=== PATIENT | female | born 1980 | race Caucasian/White ===

== ENCOUNTER 2018-02-10 08:58 | Day surgery (SDC) | payer OTHER, SELFPAY ==
[2018-02-07 14:24] VITALS: BMI 28.2
[2018-02-10] VITALS (8 sets, daily range): BP systolic 111–146; BP diastolic 72–104; PULSE 80–115; RESP 10–16; TEMP 36.2–36.6; O2SAT 95–100; BMI 28.2
[2018-02-10] MEDS: LACTATED RINGERS 1,000 ML 100 ML IV ×2 (09:38→11:37)
--- NOTE | 2018-02-10 09:52 | PM.PREOP ---
Pre-operative Note Interval Note Pre-op Check: History & Physical exam performed today
--- NOTE | 2018-02-10 10:10 | PM.HP.1 ---
History of Present Illness Chief complaint: 97566 LAP REMOVAL OF COMPLEX LEFT OVARIAN MASS Patient History Medical History Sinus drainage (Acute) Surgical History History of third molar tooth extraction Status post laparoscopic supracervical hysterectomy (11/15/14) Family & Social History Social History: household members significant other Tobacco & Substance use: Smoking Status Never smoker alcohol intake current alcohol intake frequency 0-2 drinks per day Substance Use Type does not use Meds Home Medications Medication Instructions Recorded Confirmed Type tsmbvkq-ilh-fzx N1-P3-wlbtxcki 250 1 tab PO BID 01/08/18 02/10/18 History mg-40 mg-5 mg-125 unit tablet cholecalciferol (vitamin D3) 4,000 4,000 unit PO DAILY 01/08/18 02/07/18 History unit capsule geriatric multivit with iron and 1 tab PO DAILY 01/08/18 02/07/18 History minerals tablet lactobacillus combination no.8 3 3,000 mmu cells PO DAILY 01/08/18 02/07/18 History billion cell capsule levothyroxine 100 mcg capsule 100 mcg PO DAILY #30 cap 01/20/18 02/10/18 Rx tramadol 50 mg tablet 100 mg PO Q6H PRN #20 tab 01/22/18 02/10/18 Rx Allergies Allergy/AdvReac Type Severity Reaction Status Date / Time shellfish derived Allergy Severe Anaphylaxis Verified 01/08/18 09:28 Exam Vital Signs (past 8 hours): Vital Signs - 8 hr 02/10/18 09:11 Temperature 97.4 F L Pulse Rate 88 Respiratory Rate 16 Blood Pressure 125/91 H Pulse Oximetry 99 Pulse Oximetry 99 Oxygen Delivery Method Room Air Narrative Exam Narrative: HEENT: No thyromegaly, no anterior cervical or supraclavicular lymphadenopathy. Lungs:Clear to auscultation bilaterally, no wheezes. Cardiovascular: Regular rate and rhythm, no murmurs, rubs, or gallops. Abdomen: Well-healed laparoscopy scars. No hepatosplenomegaly. No masses palpable. External genitalia: Normal Vagina: Normal Cervix: Normal Bimanual exam: Left adnexal mass Rectal: No masses. Ultrasound: Complex left ovarian mass Assessment & Plan (1) Ovarian mass: Current visit: Yes Status: Acute Plan: Assessment/Plan Narrative: Assessment: 37-year-old 3 para 2 with a complex left ovarian mass Plan: Laparoscopic removal of left ovary The risks, benefits, and alternatives to the procedure were explained to the patient. The risks including bleeding, infection, injury to the bowel, bladder, or ureters. She understands these risks and agrees to proceed. A full [facility] P AR-Q was held and consent form was signed.
--- NOTE | 2018-02-10 10:14 | P.HP_ITS ---
History of Present Illness Chief complaint: 69978 LAP REMOVAL OF COMPLEX LEFT OVARIAN MASS Patient History Medical History Sinus drainage (Acute) Surgical History History of third molar tooth extraction Status post laparoscopic supracervical hysterectomy (11/15/14) Family & Social History Social History: household members significant other Tobacco & Substance use: Smoking Status Never smoker alcohol intake current alcohol intake frequency 0-2 drinks per day Substance Use Type does not use Meds Home Medications Medication Instructions Recorded Confirmed Type hkmqpyb-pyr-bay I2-L9-nbhyzleg 250 1 tab PO BID 01/08/18 02/10/18 History mg-40 mg-5 mg-125 unit tablet cholecalciferol (vitamin D3) 4,000 4,000 unit PO DAILY 01/08/18 02/07/18 History unit capsule geriatric multivit with iron and 1 tab PO DAILY 01/08/18 02/07/18 History minerals tablet lactobacillus combination no.8 3 3,000 mmu cells PO DAILY 01/08/18 02/07/18 History billion cell capsule levothyroxine 100 mcg capsule 100 mcg PO DAILY #30 cap 01/20/18 02/10/18 Rx tramadol 50 mg tablet 100 mg PO Q6H PRN #20 tab 01/22/18 02/10/18 Rx Allergies Allergy/AdvReac Type Severity Reaction Status Date / Time shellfish derived Allergy Severe Anaphylaxis Verified 01/08/18 09:28 Exam Vital Signs (past 8 hours): Vital Signs - 8 hr 3 02/10/18 09:11 Temperature 97.4 F L Pulse Rate 88 Respiratory Rate 16 Blood Pressure 125/91 H Pulse Oximetry 99 Pulse Oximetry 99 Oxygen Delivery Method Room Air Narrative Exam Narrative: HEENT: No thyromegaly, no anterior cervical or supraclavicular lymphadenopathy. Lungs:Clear to auscultation bilaterally, no wheezes. Cardiovascular: Regular rate and rhythm, no murmurs, rubs, or gallops. Abdomen: Well-healed laparoscopy scars. No hepatosplenomegaly. No masses palpable. External genitalia: Normal Vagina: Normal Cervix: Normal Bimanual exam: Left adnexal mass Rectal: No masses. Ultrasound: Complex left ovarian mass Assessment & Plan (1) Ovarian mass: Current visit: Yes Status: Acute Plan: Assessment/Plan Narrative: Assessment: 37-year-old 3 para 2 with a complex left ovarian mass Plan: Laparoscopic removal of left ovary The risks, benefits, and alternatives to the procedure were explained to the patient. The risks including bleeding, infection, injury to the bowel, bladder , or ureters. She understands these risks and agrees to proceed. A full [facility] P AR-Q was held and consent form was signed.
[2018-02-10] MEDS: BUPIVACAINE 0.5% W/ EPI (PF) 30 ML VIAL INJ (10:53)
[2018-02-10] MEDS: fentaNYL 100 MCG/2 ML INJ 50 MCG IV ×2 (11:28→11:33)
[2018-02-10] MEDS: fentaNYL 100 MCG/2 ML INJ 25 MCG IV (11:38)
[2018-02-10] MEDS: OXYCODONE/ACETAMINOPHEN 5/325 TABLET 1 TAB PO ×2 (11:47→12:27)
--- NOTE | 2018-05-29 14:31 | P.OP_ITS ---
Operative Date/Time/Diagnoses Date of procedure: 02/10/18 Time of procedure: 09:30 Pre-op diagnosis: Complex right ovarian mass Post-op diagnosis: other (Peritoneal adhesions) Procedure: Procedures Operation Date: 02/10/18 09:45 Actual Procedures Side Surgeon p Laparoscopic LYSIS OF ADHESIONS Not Applicable Danette Alicea MD Indications: Complex left ovarian mass on ultrasound Surgeon: Danette Alicea Anesthesia Type: General Operative Notes Findings: Pelvic adhesions Fluid collection between adhesions in the left adnexa Closure Type: primary Specimen(s): none Applied: catheter (In and out) Estimated blood loss (mL): 5 Blood products transfused: none Procedure in detail: After informed consent was obtained, the patient was taken to the operating room where she was placed in the dorsal supine position. After general endotracheal anesthesia was achieved, she was placed in the dorsal lithotomy position, and prepped and draped in the usual sterile fashion. A time- out was performed. A moistened sponge stick was placed into the vagina. Attention was then turned to the abdomen where 6 cc of 0.25% Marcaine with epinephrine were injected in the umbilical fold. A 5 mm incision was made. The Veress needle was placed into the peritoneal cavity, and its placement confirmed by aspiration drop test. The abdominal cavity is insufflated with 3.4 L of CO2. The Veress needle was removed, and a 5 mm trocar was placed without difficulty. Initial inspection of pelvis and abdomen revealed adhesions in the left adnexa with fluid trapped. 2 other incisions were made midway between the pubic symphysis and umbilicus, 4 cm lateral to the midline. Two mm trocars were placed under direct visualization. Using the Endo Sagar and atraumatic graspers, the left adnexa was freed from adhesions. The fluid was released. There were no masses on the left ovary. A decision was made to leave the left ovary in place. The instruments were removed from the abdomen. The CO2 was allowed to escape. The incisions were repaired with 4 0 undyed Vicryl in a subcuticular fashion. Steri-Strips, 2 x 2, and op site were placed. The moistened sponge stick was removed from the vagina. Sponge, lap, and instrument counts were correct x2. The patient tolerated the procedure well, was taken to PACU in stable condition. Complications: none Post-operative Condition: stable Disposition: PACU Plan for aftercare: Home after recovery
== END 2018-02-10 12:39 | disposition home or self-care (01) ==
PROVIDERS: PCP Obstetrics & Gynecology; Visit Provider Obstetrics & Gynecology
PROC: (CPT 58660; principal; 2018-02-10 09:45)
DX: K66.0 Peritoneal adhesions (postprocedural) (postinfection) (principal)
CPT/HCPCS: 58660; J1100; J1885; J2250; J2405; J2704; J3010

== ENCOUNTER → 2018-03-03 13:45 | Outpatient (CLI) | payer OTHER, SELFPAY ==
[2018-03-03 15:21] LABS: Free T4, Direct Thyroxine 1.76 ng/dL (0.78-2.19)
[2018-03-03 15:35] LABS: Thyroid Stimulating Hormone < 0.02 uIU/mL (0.47-4.68)
== END ==
PROVIDERS: PCP Obstetrics & Gynecology; Visit Provider Obstetrics & Gynecology
DX: L65.9 Nonscarring hair loss, unspecified (principal); E03.9 Hypothyroidism, unspecified
CPT/HCPCS: 36415; 84439; 84443

== ENCOUNTER → 2018-09-08 15:55 | Outpatient (CLI) | payer OTHER, SELFPAY ==
--- NOTE | 2018-09-08 15:56 | DI.US.S_ITS ---
PROCEDURE: US PELVIC COMPLETE INDICATIONS: Left ovarian pain TECHNIQUE: Real-time scanning was performed of the pelvic organs, with image documentation. Additional endovaginal scanning was necessary due to incomplete visualization of the adnexal and endometrial structures by transabdominal scanning. COMPARISON: [facility], US, US PELVIC COMPLETE, 01/08/2018, 11:00. FINDINGS: Transabdominal scanning: Limited scanning through the kidneys shows no hydronephrosis. No pathologic free abdominal or pelvic fluid. Endovaginal scanning: Uterus: Uterus is surgically absent. No gross abnormality is seen in the vaginal cuff region. Small nabothian cysts are noted along the vaginal canal measures up to 5 mm in size. Ovaries: Right ovary measures 1.3 x 1.5 x 2.6 cm in size. Left ovary measures 3 x 1.9 x 2.7 cm in size. Bilateral ovarian follicles are seen measures up to 1 cm in size in left ovary. No gross solid appearing lesion. IMPRESSION: Bilateral ovarian follicles as above. No evidence of ovarian torsion. No gross solid appearing ovarian lesion. No pelvic free fluid. Uterus is surgically absent. Dictated by: Abilio Vegas M.D. on 09/08/2018 at 17:02 Approved by: Abilio Vegas M.D. on 09/08/2018 at 17:04
== END ==
PROVIDERS: PCP Obstetrics & Gynecology; Visit Provider Obstetrics & Gynecology
DX: R10.2 Pelvic and perineal pain (principal); N88.8 Other specified noninflammatory disorders of cervix uteri
CPT/HCPCS: 76830; 76856

== ENCOUNTER 2019-01-19 10:15 | Emergency (ER) | payer OTHER, SELFPAY ==
[2019-01-19 10:15] VITALS: BP 167/119; PULSE 103; RESP 20; TEMP 36.7; O2SAT 100
[2019-01-19] MEDS: diphenhydrAMINE 25 MG TABLET 50 MG PO (10:28)
--- NOTE | 2019-01-19 10:58 | ED.ALLEREA ---
HPI - Allergic Reaction General Chief complaint: Allergic Reaction Stated complaint: med reaction,chest pain/cannot breath Time Seen by Provider: 01/19/19 10:52 Source: patient and family () Mode of arrival: ambulatory Limitations: no limitations History of Present Illness HPI narrative: A 38-year-old female comes to the emergency with complaint of medication reaction. Patient took Topamax last night about 9:00 a.m.. She states almost immediately afterwards she sort of felt like she had this pressure in her chest, she has had discomfort and pain she feels like she wants to rip off her skin off. She has not had any fevers. She has had a little nasal congestion that is a little bit worse. She states she always has that has been coughing up a little bit more sputum than normal. She denies any nausea or vomiting. No diarrhea. No changes with urination. No other rashes or skin changes that she has noted. No facial swelling, no swelling of the lips mouth or tongue. She started this medication for migraines. She had tried verapamil but also had a bad response, so this was the next option. She states she has tried many medications in the past and often has medication reactions. She denies any significant family history for cardiac, pulmonary or blood clot history. She has not had any blood clots. She has not had any long distance travel. She is on progesterone because she does not have a uterus. Related Data Home Medications Medication Instructions Recorded Confirmed endsugu-nab-dyp [id number] 250 1 tab PO BID 01/08/18 01/12/19 mg-40 mg-5 mg-125 unit tablet cholecalciferol (vitamin D3) 4,000 4,000 unit PO DAILY 01/08/18 01/12/19 unit capsule geriatric multivit with iron and 1 tab PO DAILY 01/08/18 01/12/19 minerals tablet rizatriptan 10 mg tablet 10 mg PO ONCE 11/19/18 01/12/19 topiramate 1 dose PO BEDTIME 01/19/19 01/19/19 verapamil 40 mg PO TID 01/19/19 01/19/19 Previous Rx's Medication Instructions Recorded tramadol 50 mg tablet 100 mg PO Q6H PRN #20 tab 03/07/18 thyroid (pork) 90 mg tablet 90 mg PO DAILY #30 tab 04/28/18 levothyroxine 100 mcg capsule 100 mcg PO DAILY #30 cap 05/26/18 levothyroxine 150 mcg capsule 150 mcg PO DAILY #30 cap 08/12/18 progesterone micronized 100 mg 100 mg PO QAM #30 cap 10/10/18 capsule eletriptan 40 mg tablet 40 mg PO .see instructions PRN #10 11/19/18 tab naproxen 500 mg tablet 500 mg PO BID #60 tab 11/19/18 prednisone 50 mg PO DAILY #3 tab 01/19/19 Allergies Allergy/AdvReac Type Severity Reaction Status Date / Time shellfish derived Allergy Severe Anaphylaxis Verified 01/19/19 10:24 Review of Systems Review of Systems ROS Unobtainable: All systems reviewed & are unremarkable except as noted in HPI and below Constitutional Denies chills, Denies fever(s), Reports headache(s), Denies lethargy and Denies weakness ENT Ears, Nose, Mouth, and Throat: Reports headache(s) Cardiovascular Reports chest pain, Denies diaphoresis, Denies syncope, Denies edema, Denies lightheadedness and Denies dyspnea on exertion Respiratory Denies change in phlegm color, Denies chest congestion, Reports cough, Denies excessive phlegm production, Denies dyspnea on exertion, Denies stridor and Denies wheezing Gastrointestinal Gastrointestinal: Denies abdominal pain, Denies change in bowel habits, Denies constipation, Denies diarrhea, Denies loose stools, Denies nausea and Denies vomiting Genitourinary Denies hematuria, Denies dysuria, Denies flank pain and Denies urinary urgency Musculoskeletal Reports arthralgias (Right shoulder) Integumentary/Breasts Denies rash Neurologic Denies syncope, Reports headache(s) and Denies weakness Allergic/Immunologic Denies wheezing [facility] Medical History Migraine (Acute) Hayfever (Chronic) Sinus drainage (Chronic) Peritoneal adhesions (Resolved 01/2018) Surgical History History of gynecologic surgery (Resolved 02/10/18) History of third molar tooth extraction (Resolved 2009) S/P laparoscopic procedure (Resolved 02/10/18) Status post laparoscopic supracervical hysterectomy (Resolved 11/15/14) Social History household members: significant other Smoking Status: Never smoker alcohol intake: current Social History household members: significant other Smoking Status: Never smoker alcohol intake: current Exam Narrative Exam Narrative: GEN: well nourished, well appearing female, tanned, alert and oriented x 3, patient appears to be in mild distress. HEENT: Atraumatic, pupils are equal round reactive to light, extraocular movements are intact, nares are clear, TMs are clear with no fluid, there is no conjunctival pallor. Throat is clear without any exudates, erythema, tonsillar enlargement or uvular deviation HEART: Regular rate and rhythm without murmur, clicks, rubs. LUNGS:Lungs clear to auscultation, no wheezes, rales, crackles, chest moves symmetrically, no tachypnea or accessory muscle use. ABD:bowel sounds normal, soft, non-tender, no guarding, rebound, rigidity, no masses noted, no hepatosplenomegaly MSCL: Non-tender, muscles strength 5/5 upper and lower extremities, full range of motion, normal gait NEURO:CN 2-12 intact, sensation normal SKIN: No hives, no erythema, no rashes, no petechiae or bruising. Initial Vital Signs Initial Vital Signs: Vital Signs Temperature 98.1 F 01/19/19 10:15 Pulse Rate 103 H 01/19/19 10:15 Respiratory Rate 20 01/19/19 10:15 Blood Pressure 167/119 H 01/19/19 10:15 Pulse Oximetry 100 01/19/19 10:15 Course Orders Ordered: ED Orders 01/19/19 11:08 XR chest 1V Stat EKG-12 Lead Stat Discontinued Medications Diphenhydramine HCl (Benadryl) 50 mg PO NOW ONE Stop: 01/19/19 10:26 Last Admin: 01/19/19 10:28 Dose: 50 mg Prednisone (Deltasone) 60 mg PO NOW ONE Stop: 01/19/19 11:09 Last Admin: 01/19/19 11:55 Dose: 60 mg Vital Signs - 8 hr 01/19/19 11:00 01/19/19 12:00 Pulse Rate 87 85 Blood Pressure [Left Arm] 137/96 H 117/85 Pulse Oximetry 100 100 MDM - Allergic Reaction Imaging Data Chest x-ray: Radiologist's impression: [address] [address] XRay Report Signed Patient: Laverne Teague KMR#: [id number] : 1980Acct:[id number] Age/Sex: 38 / FDate of Service: 01/19/19 Loc: ED Accession Number: [id number] Procedure: XR chest 1V Ordering Provider: Connie Thornton D.O. PROCEDURE: XR CHEST 1V INDICATIONS: chest pain, had new medications yesterday TECHNIQUE: One view of the chest was acquired. COMPARISON: [facility], , XR CHEST 2VW, 10/29/2016, 11:44. FINDINGS: Surgical changes and devices: None. Lungs and pleura: Lungs are clear. No pleural effusions or pneumothorax. Mediastinum: Mediastinal contours appear normal. Heart size is normal. Bones and chest wall: No suspicious bony lesions. Overlying soft tissues appear unremarkable. IMPRESSION: No acute cardiopulmonary disease. Dictated by: Zakia Mtz M.D. on 01/19/2019 at 11:06 Approved by: Zakia Mtz M.D. on 01/19/2019 at 11:07 ECG Data Attestation: I personally reviewed and interpreted this ECG as follows: Prior ECG tracings: not available for review Interpretation: Sinus with a rate 82 P are 144 QRS of 93 QTC 388. MDM Narrative Medical decision making narrative: The patient did not respond to Benadryl. She received 50 mg in the department but has not noticed much difference. We did discuss doing a lowe workup with lab work, EKG and chest x-ray but patient defers lab work. She is willing to do EKG chest x-ray. I suspect with her onset of symptoms from starting the Topamax that is related to this. Patient's EKG chest x-ray did not show any acute changes. Discussed with patient she did not want further workup. Discussed no Topamax. She did have some help with the steroid so we will continue this for 3 days and discussed she can continue some Benadryl. I am unsure if this is caused by her Topamax and but did not recommend taking it until she talks to her neurologist. Discharge Plan Departure Patient Disposition: Home Clinical Impression: Medication reaction Discharge Date/Time: 01/19/19 12:59 Interventions: ED Discharge Assessment Last Done: 01/19/19 12:59 Instructions: DI for Adverse Drug Reaction -- Other Activity Restrictions/Additional Instructions: Follow-up with your neurologist regarding her medication. Do not take her medication until you discuss whether not you should with your neurologist. Take prednisone once daily until gone. Your prescription was sent to [facility] in [place]. You may take Benadryl 1-2 tablets every 6-8 hours as needed for symptoms. Return to the emergency department for fevers greater than 100.4 F worsening chest pain, shortness of breath, coughing up blood, passing out, persistent vomiting, black or bloody stools, sudden severe back or abdominal pain or other new or concerning symptoms. Prescriptions: New prednisone 50 mg tablet 50 mg PO DAILY Qty: 3 RF: 0 No Action tramadol 50 mg tablet 100 mg PO Q6H PRN (Reason: pain) Qty: 20 RF: 0 thyroid (pork) [Morrill Thyroid] 90 mg tablet 90 mg PO DAILY Qty: 30 RF: 3 levothyroxine 100 mcg capsule 100 mcg PO DAILY Qty: 30 RF: 3 levothyroxine 150 mcg capsule 150 mcg PO DAILY Qty: 30 RF: 6 progesterone micronized 100 mg capsule 100 mg PO QAM Qty: 30 RF: 6 vgfldhn-xhe-pjl [id number]-B6-tenccprz [Calcium Citrate + D with Mag] 213-18-6-125 gi-ju-ov-unit tablet 1 tab PO BID RF: 0 geriatric ogugxleq-dswq-ddxg tablet 1 tab PO DAILY RF: 0 cholecalciferol (vitamin D3) 4,000 unit capsule 4,000 unit PO DAILY RF: 0 verapamil 40 mg tablet 40 mg PO TID RF: 0 topiramate 25 mg tablet 1 dose PO BEDTIME RF: 0 rizatriptan 10 mg tablet 10 mg PO ONCE RF: 0 eletriptan 40 mg tablet 40 mg PO .see instructions PRN (Reason: migraine headache) Qty: 10 RF: 2 naproxen [Naprosyn] 500 mg tablet 500 mg PO BID Qty: 60 RF: 2 Referrals: Danette Alicea MD [Primary Care Provider] -
[2019-01-19 11:00] VITALS: BP 137/96; PULSE 87; O2SAT 100
--- NOTE | 2019-01-19 11:08 | DI.RAD.S_ITS ---
PROCEDURE: XR CHEST 1V INDICATIONS: chest pain, had new medications yesterday TECHNIQUE: One view of the chest was acquired. COMPARISON: [facility], CR, XR CHEST 2VW, 10/29/2016, 11:44. FINDINGS: Surgical changes and devices: None. Lungs and pleura: Lungs are clear. No pleural effusions or pneumothorax. Mediastinum: Mediastinal contours appear normal. Heart size is normal. Bones and chest wall: No suspicious bony lesions. Overlying soft tissues appear unremarkable. IMPRESSION: No acute cardiopulmonary disease. Dictated by: Zakia Mtz M.D. on 01/19/2019 at 11:06 Approved by: Zakia Mtz M.D. on 01/19/2019 at 11:07
--- NOTE | 2019-01-19 11:16 | ED_ITS ---
HPI - Allergic Reaction General Chief complaint: Allergic Reaction Stated complaint: med reaction,chest pain/cannot breath Time Seen by Provider: 01/19/19 10:52 Source: patient and family () Mode of arrival: ambulatory Limitations: no limitations History of Present Illness HPI narrative: A 38-year-old female comes to the emergency with complaint of medication reaction. Patient took Topamax last night about 9:00 a.m.. She states almost immediately afterwards she sort of felt like she had this pressure in her chest, she has had discomfort and pain she feels like she wants to rip off her skin off. She has not had any fevers. She has had a little nasal congestion that is a little bit worse. She states she always has that has been coughing up a little bit more sputum than normal. She denies any nausea or vomiting. No diarrhea. No changes with urination. No other rashes or skin changes that she has noted. No facial swelling, no swelling of the lips mouth or tongue. She started this medication for migraines. She had tried verapamil but also had a bad response, so this was the next option. She states she has tried many medications in the past and often has medication reactions. She den ies any significant family history for cardiac, pulmonary or blood clot history. She has not had any blood clots. She has not had any long distance travel. She is on progesterone because she does not have a uterus. Related Data Home Medications Medication Instructions Recorded Confirmed [id number] 250 1 tab PO BID 01/08/18 01/12/19 mg-40 mg-5 mg-125 unit tablet cholecalciferol (vitamin D3) 4,000 4,000 unit PO DAILY 01/08/18 01/12/19 unit capsule geriatric multivit with iron and 1 tab PO DAILY 01/08/18 01/12/19 minerals tablet rizatriptan 10 mg tablet 10 mg PO ONCE 11/19/18 01/12/19 topiramate 1 dose PO BEDTIME 01/19/19 01/19/19 verapamil 40 mg PO TID 01/19/19 01/19/19 Previous Rx's Medication Instructions Recorded tramadol 50 mg tablet 100 mg PO Q6H PRN #20 tab 03/07/18 thyroid (pork) 90 mg tablet 90 mg PO DAILY #30 tab 04/28/18 levothyroxine 100 mcg capsule 100 mcg PO DAILY #30 cap 05/26/18 levothyroxine 150 mcg capsule 150 mcg PO DAILY #30 cap 08/12/18 progesterone micronized 100 mg 100 mg PO QAM #30 cap 10/10/18 capsule eletriptan 40 mg tablet 40 mg PO .see instructions PRN #10 11/19/18 tab naproxen 500 mg tablet 500 mg PO BID #60 tab 11/19/18 prednisone 50 mg PO DAILY #3 tab 01/19/19 Allergies Allergy/AdvReac Type Severity Reaction Status Date / Time shellfish derived Allergy Severe Anaphylaxis Verified 01/19/19 10:24 Review of Systems Review of Systems ROS Unobtainable: All systems reviewed & are unremarkable except as noted in HPI and below Constitutional Denies chills, Denies fever(s), Reports headache(s), Denies lethargy and Denies weakness ENT Ears, Nose, Mouth, and Throat: Reports headache(s) Cardiovascular Reports chest pain, Denies diaphoresis, Denies syncope, Denies edema, Denies lightheadedness and Denies dyspnea on exertion Respiratory Denies change in phlegm color, Denies chest congestion, Reports cough, Denies excessive phlegm production, Denies dyspnea on exertion, Denies stridor and Denies wheezing Gastrointestinal Gastrointestinal: Denies abdominal pain, Denies change in bowel habits, Denies constipation, Denies diarrhea, Denies loose stools, Denies nausea and Denies vomiting Genitourinary Denies hematuria, Denies dysuria, Denies flank pain and Denies urinary urgency Musculoskeletal Reports arthralgias (Right shoulder) Integumentary/Breasts Denies rash Neurologic Denies syncope, Reports headache(s) and Denies weakness Allergic/Immunologic Denies wheezing [facility] Medical History Migraine (Acute) Hayfever (Chronic) Sinus drainage (Chronic) Peritoneal adhesions (Resolved 01/2018) Surgical History History of gynecologic surgery (Resolved 02/10/18) History of third molar tooth extraction (Resolved 2009) S/P laparoscopic procedure (Resolved 02/10/18) Status post laparoscopic supracervical hysterectomy (Resolved 11/15/14) Social History household members: significant other Smoking Status: Never smoker alcohol intake: current Social History household members: significant other Smoking Status: Never smoker alcohol intake: current Exam Narrative Exam Narrative: GEN: well nourished, well appearing female, tanned, alert and oriented x 3, patient appears to be in mild distress. HEENT: Atraumatic, pupils are equal round reactive to light, extraocular movements are intact, nares are clear, TMs are clear with no fluid, there is no conjunctival pallor. Throat is clear without any exudates, erythema, tonsillar enlargement or uvular deviation HEART: Regular rate and rhythm without murmur, clicks, rubs. LUNGS:Lungs clear to auscultation, no wheezes, rales, crackles, chest moves symmetrically, no tachypnea or accessory muscle use. ABD:bowel sounds normal, soft, non-tender, no guarding, rebound, rigidity, no masses noted, no hepatosplenomegaly MSCL: Non-tender, muscles strength 5/5 upper and lower extremities, full range of motion, normal gait NEURO:CN 2-12 intact, sensation normal SKIN: No hives, no erythema, no rashes, no petechiae or bruising. Initial Vital Signs Initial Vital Signs: Vital Signs Temperature 98.1 F 01/19/19 10:15 Pulse Rate 103 H 01/19/19 10:15 Respiratory Rate 20 01/19/19 10:15 Blood Pressure 167/119 H 01/19/19 10:15 Pulse Oximetry 100 01/19/19 10:15 Course Orders Ordered: ED Orders 01/19/19 11:08 XR chest 1V Stat EKG-12 Lead Stat Discontinued Medications Diphenhydramine HCl (Benadryl) 50 mg PO NOW ONE Stop: 01/19/19 10:26 Last Admin: 01/19/19 10:28 Dose: 50 mg Prednisone (Deltasone) 60 mg PO NOW ONE Stop: 01/19/19 11:09 Last Admin: 01/19/19 11:55 Dose: 60 mg Vital Signs - 8 hr 01/19/19 11:00 01/19/19 12:00 Pulse Rate 87 85 Blood Pressure [Left Arm] 137/96 H 117/85 Pulse Oximetry 100 100 MDM - Allergic Reaction Imaging Data Chest x-ray: Radiologist's impression: [facility] [address] [place] [address] XRay Report Signed Patient: aLverne Teague KMR#: [id number] : 1980Acct:[id number] Age/Sex: 38 / FDate of Service: 01/19/19 Loc: ED Accession Number: [id number] Procedure: XR chest 1V Ordering Provider: Connie Thornton D.O. PROCEDURE: XR CHEST 1V INDICATIONS: chest pain, had new medications yesterday TECHNIQUE: One view of the chest was acquired. COMPARISON: [facility], CR, XR CHEST 2VW, 10/29/2016, 11:44. FINDINGS: Surgical changes and devices: None. Lungs and pleura: Lungs are clear. No pleural effusions or pneumothorax. Mediastinum: Mediastinal contours appear normal. Heart size is normal. Bones and chest wall: No suspicious bony lesions. Overlying soft tissues appear unremarkable. IMPRESSION: No acute cardiopulmonary disease. Dictated by: Zakia Mtz M.D. on 01/19/2019 at 11:06 Approved by: Zakia Mtz M.D. on 01/19/2019 at 11:07 ECG Data Attestation: I personally reviewed and interpreted this ECG as follows: Prior ECG tracings: not available for review Interpretation: Sinus with a rate 82 P are 144 QRS of 93 QTC 388. MDM Narrative Medical decision making narrative: The patient did not respond to Benadryl. She received 50 mg in the department but has not noticed much difference. We did discuss doing a lowe workup with lab work, EKG and chest x-ray but patient defers lab work. She is willing to do EKG chest x-ray. I suspect with her onset of symptoms from starting the Topamax that is related to this. Patient's EKG chest x-ray did not show any acute changes. Discussed with patient she did not want further workup. Discussed no Topamax. She did have some help with the steroid so we will continue this for 3 days and discussed she can continue some Benadryl. I am unsure if this is caused by her Topamax and but did not recommend taking it until she talks to her neurologist. Discharge Plan Departure Patient Disposition: Home Clinical Impression: Medication reaction Discharge Date/Time: 01/19/19 12:59 Interventions: ED Discharge Assessment Last Done: 01/19/19 12:59 Instructions: DI for Adverse Drug Reaction -- Other Activity Restrictions/Additional Instructions: Follow-up with your neurologist regarding her medication. Do not take her medication until you discuss whether not you should with your neurologist. Take prednisone once daily until gone. Your prescription was sent to [facility] in [place]. You may take Benadryl 1-2 tablets every 6-8 hours as needed for symptoms. Return to the emergency department for fevers greater than 100.4 F worsening chest pain, shortness of breath, coughing up blood, passing out, persistent vomiting, black or bloody stools, sudden severe back or abdominal pain or other new or concerning symptoms. Prescriptions: New prednisone 50 mg tablet 50 mg PO DAILY Qty: 3 RF: 0 No Action tramadol 50 mg tablet 100 mg PO Q6H PRN (Reason: pain) Qty: 20 RF: 0 thyroid (pork) [[place] Thyroid] 90 mg tablet 90 mg PO DAILY Qty: 30 RF: 3 levothyroxine 100 mcg capsule 100 mcg PO DAILY Qty: 30 RF: 3 levothyroxine 150 mcg capsule 150 mcg PO DAILY Qty: 30 RF: 6 progesterone micronized 100 mg capsule 100 mg PO QAM Qty: 30 RF: 6 svjjuxn-ctk-pmh G5-S3-dbooeszj [Calcium Citrate + D with Mag] 355-52-9-125 zd-yu-to-unit tablet 1 tab PO BID RF: 0 geriatric iegcrmfm-jecy-ggzk tablet 1 tab PO DAILY RF: 0 cholecalciferol (vitamin D3) 4,000 unit capsule 4,000 unit PO DAILY RF: 0 verapamil 40 mg tablet 40 mg PO TID RF: 0 topiramate 25 mg tablet 1 dose PO BEDTIME RF: 0 rizatriptan 10 mg tablet 10 mg PO ONCE RF: 0 eletriptan 40 mg tablet 40 mg PO .see instructions PRN (Reason: migraine headache) Qty: 10 RF: 2 naproxen [Naprosyn] 500 mg tablet 500 mg PO BID Qty: 60 RF: 2 Referrals: Danette Alicea MD [Primary Care Provider] -
[2019-01-19] MEDS: predniSONE 20 MG TABLET 60 MG PO (11:55)
[2019-01-19 12:00] VITALS: BP 117/85; PULSE 85; O2SAT 100
--- NOTE | 2019-01-19 12:14 | PC.NURSE ---
Pt feels like it's an allergic reaction to topimax, She reports feeling like she did swallow the benadryl ok, vss, easy work of breathing, no hives, skin is clear. pt in room with significant other.
== END 2019-01-19 12:59 | disposition home or self-care (01) ==
PROVIDERS: Emergency Provider Emergency Medicine; PCP Obstetrics & Gynecology
DX: R07.89 Other chest pain (principal); T50.905A Adverse effect of unspecified drugs, medicaments and biological substances, initial encounter
CPT/HCPCS: 71045; 93005; 93010; 99282; 99284

== ENCOUNTER → 2019-04-06 16:32 | Outpatient (CLI) | payer OTHER, SELFPAY ==
[2019-04-06 17:58] LABS: Free T3, Triiodothyronine Free 4.41 pg/mL (2.77-5.27); Free T4, Direct Thyroxine 1.76 ng/dL (0.78-2.19); Progesterone, Total 7.64 ng/mL
[2019-04-06 18:12] LABS: Thyroid Stimulating Hormone < 0.02 uIU/mL (0.47-4.68)
[2019-04-06 18:14] LABS: Estradiol, Total 92.3 pg/mL
[2019-04-09 18:32] LABS: Testosterone Free 3.9 pg/mL (0.1-6.4); Testosterone Total 48 ng/dL (2-45)
== END ==
PROVIDERS: PCP Obstetrics & Gynecology; Visit Provider Obstetrics & Gynecology
DX: R63.5 Abnormal weight gain (principal)
CPT/HCPCS: 36415; 82670; 84144; 84402; 84403; 84439; 84443; 84481

== ENCOUNTER 2024-05-18 11:54 | Day surgery (SDC) | payer OTHER, SELFPAY ==
[2024-05-18] VITALS (9 sets, daily range): BP systolic 108–150; BP diastolic 74–89; PULSE 89–124; RESP 13–20; TEMP 36.1–36.4; O2SAT 98–99; BMI 24.2
--- NOTE | 2024-05-18 | PATH_ITS ---
[facility] Accession Number: [id number] No. of containers..01 Tissue . 01 Material submitted: . ovary - BILATERAL OVARIES . 01 Diagnosis: BILATERAL OVARIES, LAPAROSCOPIC BILATERAL OOPHORECTOMIES: First-described ovary with a prominent corpus luteum cyst and multiple cystic follicles (ranging in size from 3-16 mm). Second-described ovary with a cystic follicle and a corpus luteum cyst (ranging in size from 2-9 mm). Background of both ovaries demonstrates patchy stromal thecosis. No atypica or neoplastic features identified. [facility] 05/21/2024 1409 Local . 01 Electronically signed: . Fátima Weldon MD, Pathologist NPI- [id number] . 01 Gross description: . Received in formalin with two patient identifiers and bilateral ovaries, are two unoriented ovaries. The first (5 grams, 3.4 x 2.9 x 1.5 cm) has a major, cerebriform external surface that is inked blue. Sectioning reveals multiple thin, smooth-walled cystic structures ranging from 0.3 to 1.6 cm in greatest dimension filled with major serous fluid. Normal ovarian parenchyma is distorted but present with no additional lesions identified. . . The second ovary weighs 2 grams, measures 1.5 x 1.6 x 1.0 cm, and is inked green. The cut surface has two cystic structures, 0.2 to 0.9 cm in greatest dimension filled with major serous fluid. Financial Developer sections are submitted as follows: . A1-A3: Entire first ovary. A4: Second ovary. ([id number]) /V 05/20/2024 1339 Local . 01 Pathologist provided ICD-10: N83.202 . 01 CPT . 752963 Specimen Comment: A courtesy copy of this report has been sent to [phone] Performed at: [address] [facility] [place] [place], [place], [place] [id number] MD Hong Jason MD Phone: [phone]
--- NOTE | 2024-05-18 13:53 | PM.GYNHP.1 ---
History of Present Illness History of Present Illness Reason for admission: pelvic pain Narrative: Laverne Teague is a 44 year old female 3 para 2 with a left ovarian cyst. Patient desires removal of both ovaries. [facility] Medical History (Updated 05/04/24 @ 14:18 by Danette Alicea MD) Migraine Peritoneal adhesions (01/2018) Hayfever Sinus drainage Surgical History History of gynecologic surgery (02/10/18) S/P laparoscopic procedure (02/10/18) Status post laparoscopic supracervical hysterectomy (11/15/14) History of third molar tooth extraction (2009) Social History household members: significant other Smoking Status: Never smoker alcohol intake: current Meds Home Medications and Allergies Home Medications Medication Instructions Recorded Confirmed Type gvnyrem-fby-wmj O6-H1-iqzmaukx 250 1 tab PO BID 01/08/18 05/18/24 History mg-40 mg-5 mg-125 unit tablet (Calcium Citrate + D with Mag) cholecalciferol (vitamin D3) 100 4,000 unit PO DAILY 01/08/18 05/18/24 History mcg (4,000 unit) capsule geriatric gcwprwgh-wbjm-hhke 1 tab PO DAILY 01/08/18 05/18/24 History tramadol 50 mg tablet 100 mg (2 x 50 mg) PO Q6H PRN pain 03/07/18 05/18/24 Rx #20 tabs onabotulinumtoxinA 200 unit 200 unit IM ONCE #1 ea 02/24/19 05/18/24 Rx solution for injection (Botox) estradiol 0.5 mg tablet 0.5 mg PO DAILY #30 tabs 10/21/20 05/18/24 Rx levothyroxine 112 mcg capsule 112 mcg PO DAILY #30 caps 04/19/21 05/18/24 Rx cimetidine 800 mg tablet 800 mg PO DAILY 05/18/24 05/18/24 History cromolyn 100 mg/5 mL oral 100 mg PO BID 05/18/24 05/18/24 History concentrate hydroxychloroquine 200 mg tablet 200 mg PO BID 05/18/24 05/18/24 History semaglutide 1 mg/dose (4 mg/3 mL) 1 mg SUBCUT QWEEK 05/18/24 05/18/24 History subcutaneous pen injector (Ozempic) Allergies Allergy/AdvReac Type Severity Reaction Status Date / Time shellfish derived Allergy Severe Anaphylaxis Verified 05/18/24 13:26 topiramate [From Topamax] AdvReac shortness Verified 05/18/24 13:26 of breath, chest tightness verapamil AdvReac shortness Verified 05/18/24 13:26 of breath, heartburn Exam Narrative Exam Narrative: HEENT: No thyromegaly, no anterior cervical or supraclavicular lymphadenopathy. Lungs:Clear to auscultation bilaterally, no wheezes. Cardiovascular: Regular rate and rhythm, no murmurs, rubs, or gallops. Abdomen: Well-healed laparoscopy scars. No hepatosplenomegaly. No masses palpable. External genitalia: Normal Vagina: Normal Cervix: Normal Bimanual exam: Uterus surgically absent. Extremities: No edema Assessment & Plan Assessment & Plan narrative: Assessment: 44-year-old 3 para 2 with pelvic pain and a left ovarian cyst Plan: Diagnostic laparoscopy with removal of both ovaries, possible lysis of adhesions The risks, benefits, and alternatives to the procedure were explained to the patient. The risks including bleeding, infection, injury to the bowel, bladder, or ureters. She understands these risks and agrees to proceed. A full par Q was held and consent form was signed. Time-Based Coding :: [TOTAL MINUTES] spent with patient and on the chart (including review of chart, obtaining history, exam, reviewing outside data, placing orders, documenting exam and treatment plan, and counseling patient) on [DATE].
[2024-05-18] MEDS: DEXTROSE 50 % IN WATER 25 GM/50 ML SYRINGE IV (14:03)
--- NOTE | 2024-05-18 14:04 | PM.PREOP ---
Pre-operative Note Interval Note History & Physical reviewed/Exam performed by Physician: Yes Changes to H&P: No H&P completed within 30 days and has changed as indicated here:: 05/18/24
[2024-05-18] MEDS: ACETAMINOPHEN 325 MG TABLET 975 MG PO (14:08)
[2024-05-18] MEDS: LACTATED RINGERS 1,000 ML 42 ML IV ×2 (14:11→16:00)
--- NOTE | 2024-05-18 14:51 | SUR.OPER ---
Lithotomy on padded OR bed. [place] Pad Positioner under torso. Head on pillow, arms padded and tucked at sides. Legs secured in padded yellow fins stirrups.
[2024-05-18] MEDS: BUPIVACAINE 0.5% (PF) 30 ML, EPINEPHrine 0.15 MG INJ (14:54)
--- NOTE | 2024-05-18 15:26 | PM.GYNOP.1 ---
Operative Date/Time/Diagnoses Date of procedure: 05/18/24 Time of procedure: 15:26 Procedure & Clinicians Procedure: Procedures Operation Date: 05/18/24 14:45 Actual Procedure Side Surgeon p Laparoscopic bilateral oophorectomy Danette Alicea MD Indications: 44-year-old 3 para 2 with a right ovarian cyst Desires removal of both ovaries Uterus and tubes previously removed Surgeon: Danette Alicea Anesthesia Type: General and Local Operative Notes Findings: Uterus and tubes surgically absent Right ovary with a 4 cm simple cyst Left ovary normal Normal appendix Normal liver and gallbladder No pelvic or abdominal adhesions No evidence of endometriosis Closure Type: primary Specimen(s): other (Both ovaries) Estimated blood loss (mL): 5 Blood products transfused: none Procedure in detail: After informed consent was obtained, the patient was taken to the operating room where she was placed in the dorsal supine position. After adequate general endotracheal anesthesia was achieved, she was placed in the dorsal lithotomy position, and prepped and draped in the usual sterile fashion. A moistened sponge stick was placed into the vagina. Attention was turned to the abdomen where 6 cc of 0.5% Marcaine with epinephrine were injected in the umbilical fold. A 5 mm incision was made. The Veress needle was placed into the peritoneal cavity, and its placement confirmed by aspiration and drop test. The abdominal cavity was insufflated with 3 L of CO2. The Veress needle was removed, and a 5 mm trocar was placed without difficulty. Two other incisions were made 4 cm lateral to the umbilicus after 6 cc of 0.5% Marcaine with epinephrine were injected. Two 5 mm trocars were placed under direct visualization. The right ovary was grasped with an atraumatic grasper. Using the power seal, the infundibulopelvic ligament on the right side was cauterized and cut. The right ovary was placed into the cul-de-sac. The left ovary was grasped with an atraumatic grasper. Using the power seal, the infundibulopelvic ligament on the left side was cauterized and cut. 6 cc of 0.5% Marcaine with epinephrine were injected 2 cm above the pubic symphysis. A an 11 mm incision was made. An 11 mm trocar was placed under direct visualization. The small endobag was placed through the suprapubic trocar and both ovaries were placed into the bag. The trocar was removed. The bag was removed through the incision. The fascia on the suprapubic incision was closed with 0 Vicryl in a running fashion. The abdomen and pelvis were inspected and there was no bleeding noted. The instruments were removed from the abdomen. The CO2 was allowed to escape. The incisions were closed with 4-0 Monocryl in a subcuticular fashion. Steri-Strips and Allevyn dressings were placed. An Allevyn dressing was placed over the suprapubic incision as well. The sponge stick was removed from the vagina. Sponge, lap, and instrument counts were correct x2. The patient tolerated the procedure well, and was taken to PACU in stable condition. Complications: none Post-operative Condition: stable Disposition: PACU Plan for aftercare: Home after recovery
[2024-05-18] MEDS: OXYCODONE IR 5 MG TABLET PO ×2 (15:45→16:20)
== END 2024-05-18 16:46 | disposition home or self-care (01) ==
PROVIDERS: PCP Obstetrics & Gynecology; Referring Provider Obstetrics & Gynecology; Visit Provider Obstetrics & Gynecology
PROC: (CPT 49320; principal; 2024-05-18 14:45)
DX: N83.12 Corpus luteum cyst of left ovary (principal); N83.11 Corpus luteum cyst of right ovary
CPT/HCPCS: 58661; 81025; 82962; J0171; J1100; J1885; J2405; J2704; J3010; J3490